=== PATIENT | male | born 1960 | race Caucasian/White ===

== ENCOUNTER 2019-03-27 10:55 | Inpatient (IN) ==
--- NOTE | 2019-03-06 11:12 | PAT Medication Instructions ---
Medication Instructions Date of Service March 06, 2019 Home Medications insulin degludec-liraglutide [Xultophy 100/3.6] 32 SUBCUT QPM metformin 500 mg PO BID DO NOT take the morning of surgery metformin 500 mg PO BID Take evening before surgery insulin degludec-liraglutide [Xultophy 100/3.6] 32 SUBCUT QPM metformin 500 mg PO BID Other Notes If you have any questions please call us at [phone] or [phone] or [phone] or [phone]
--- NOTE | 2019-03-06 11:12 | Anesthesiology Consultation ---
Date of Service March 06, 2019 Assessment & Plan (1) Encounter for pre-operative examination: - Check BSG AM DOS Chart Review Chart Review: Acceptable Risk for Surgery and Patient seen in Pre Admission Testing Teaching & Discussion Pre-Anesthesia Teaching/Discussion Notes: Instructed NPO after midnight before surgery,except medications with 15 cc of water. Medication instructions provided according to the PAT guidelines. History Surgery Operation Date: 03/27/19 09:20 Proposed Procedures p Right Revision Total Knee Replacement - Marck Chua MD Height/Weight Height: 6 ft Weight: 98.1 kg Allergies Allergy/AdvReac Type Severity Reaction Status Date / Time No Known Allergies Allergy Verified 03/05/19 15:34 Medications Home Medications Medication Instructions Recorded Confirmed Last Taken insulin degludec-liraglutide 32 SUBCUT QPM 03/05/19 Unknown [Xultophy 100/3.6] metformin 500 mg PO BID 03/05/19 03/05/19 Unknown Past Medical History Medical History Diabetes IDDM Exercise / Class Metabolic Activity III < 4 Walking/Shop/Light housework Past Surgical History Surgical History History of appendectomy History of surgery BACK History of cholecystectomy History of colonoscopy History of total knee replacement RIGHT Past Anesthesia History No Hx of Anesthesia Complications and No Family Hx of Anesthesia Complications History of PONV No Hx of PONV and No Hx of Motion Sickness Social History Smoking Status: Never smoker Do You Dip or Chew Tobacco: No Hx Alcohol Use: No Hx Substance Use: No substance use type: does not use Review of Systems Patient denies chest pain, shortness of breath, cough, wheezing, palpitations. Physical Exam Vital Signs VITALS BP 105/70 P 69 TEMP 98.0 SP02 95%RA RESP 16 PHYSICAL Full neck and c-spine range of motion. Full TMJ range of motion. TMD 3 finger breaths Mallampati Score 1 Dentition: full dentures on upper Lungs: clear throughout to auscultation Cardiac: regular rate and rhythm, no murmurs noted Spine: normal Carotid arteries: negative bruit Extremities: no edema Testing Laboratory Results 03/06/19 11:13 03/06/19 11:13 03/06/19 03/06/19 03/06/19 11:13 11:13 11:13 PT 10.2 INR 1.0 APTT 27.5 Hemoglobin A1c 8.5 H Blood Type O Positive Antibody Screen NEGATIVE Surgeon made aware of elevated hgba1c/glucose* Electrocardiogram Date: 03/06/19 Findings: + NSR @ (68) Chest X-Ray Date: 02/26/19 Findings: + NAD
[2019-03-06 12:34] LABS: Basophils # (auto) 0.01 K/uL (0-0.2); Basophils % (auto) 0.1 %; Eosinophils # (auto) 0.18 K/uL (0-0.5); Eosinophils % (auto) 2.4 %; Hematocrit (blood only) 41.5 % (42-52); Hemoglobin 14.9 g/dL (14.0-18.0); Immature Granulocytes # (auto) 0.04 K/uL (0.00-0.02); Immature Granulocytes % (auto) 0.5 %; Lymphocytes % (auto) 15.8 %; Mean Corpuscular Hgb Conc 35.9 g/dL (32-36); Mean Corpuscular Volume 83.7 fL (80-100); Mean Platelet Volume 8.4 fL (7.4-10.4); Monocytes % (auto) 6.6 %; Neutrophils # (auto) 5.67 K/uL (1.4-6.5); Neutrophils % (auto) 74.6 %; Platelet Count 282 K/uL (130-400); RDW Coefficient of Variation 12.2 % (11.5-14.5); RDW Standard Deviation 36.9 fL (36.4-46.3); Red Blood Count 4.96 M/uL (4.7-6.1)
[2019-03-06 12:42] LABS: Partial Thromboplastin Time 27.5 Seconds (21.0-31.0); Prothrombin Time 10.2 Seconds (9.0-12.0)
[2019-03-06 12:53] LABS: BUN Creatinine Ratio 12.8 (10-20); C Reactive Protein 0.61 mg/dl (0-0.29); Creatinine Clr Calc Pharmacy 103.5 ml/min; Est GFR (African American) 105.1; Est GFR (Non-African American) 90.6; Potassium 4.2 mmol/L (3.5-5.1)
[2019-03-06 13:24] LABS: Estimated Average Glucose 197 mg/dl; Hemoglobin A1C 8.5 % (4.5-5.6)
--- NOTE | 2019-03-22 11:31 | History and Physical Report ---
DATE OF ADMISSION: 03/27/2019 CHIEF COMPLAINT: Right knee pain, discomfort and swelling. HISTORY OF PRESENT ILLNESS: The patient is a 59-year-old gentleman well known to me from previously treating for his left knee. He had both of his knees replaced by Dr. rFy in [facility] in 2008. He is about 10 years out from that surgery. He never got any relief of his pain on his left knee and had recurrent swelling and he underwent a revision of the tibial tray for aseptic loosening done by myself on 12/13/2012. He has done well from that knee ever since. He has had no problems at all. Over the past 6-7 months, he developed the insidious onset of pain and discomfort in his right knee as well as swelling. It has become unstable for him. It has gradually just gotten worse week by week. He cannot walk any significant distance. He has had no fevers and no recent signs of infection. We did do a workup. His white blood cell count was normal. His inflammatory parameters on 02/13/2019 revealed a CRP of less than 0.29 and sed rate of 3. We did aspirate his knee and it revealed 4000 white cells with 22% polys and no growth. He continues to have persistent pain, now presents for a revision. We also did a bone scan, which is suggestive of loosening of his femoral component. On plain films, it also suggested loosening of the tibial tray. He has elected to proceed with revision surgery. We have him come back and did his workup and his sed rate and C-reactive protein were just slightly elevated with a sed rate of 16 and C-reactive protein of 0.61. I re-aspirated his knee which revealed 4000 white cells and 44% polys, once again no growth. We sent it off for Synovasure testing which was negative. He now like to proceed with revision of his knee. I think we are going to have to revise both components and I think this is aseptic loosening. He has had 3 cultures of this knee which have been no growth. Synovasure test negative. PAST MEDICAL HISTORY: Significant for: 1. Diabetes x10 years. 2. Sciatica/low back pain. PAST SURGICAL HISTORY: Previous surgeries include: 1. Bilateral knee replacements done in 2008. 2. Back surgery. 3. Left knee revision in 12/13/2012. ALLERGIES: None. CURRENT MEDICINES: Include metformin. SOCIAL HISTORY: A 59-year-old male. He is . Does not drink. One child. FAMILY HISTORY: Noncontributory. REVIEW OF SYSTEMS: Significant for diabetes which has been somewhat poorly controlled at times. Denies any chest pain or shortness of breath. No history of DVT or PE. PHYSICAL EXAMINATION GENERAL: Shows a pleasant, middle-aged male who looks to be in pretty good health. HEENT: Benign. NECK: Supple. No lymphadenopathy. LUNGS: Clear to auscultation. HEART: Regular rate and rhythm. ABDOMEN: Soft, nontender, nondistended. EXTREMITIES: Grossly neurovascularly intact except as follows. Examination of the right knee reveals the patient walks with markedly antalgic gait. He does limp on his right side. He has got a large knee effusion. No warmth or redness. Range of motion 0 to about 115. There seems to be some varus, valgus laxity. He has no pain with hip motion. X-RAYS: X-ray of the right knee reviewed. Shows evidence of posterior stabilized total knee arthroplasty. A little lucency underneath the tibial tray as well as some lucency around the femoral component. Bone scan from [facility] is reviewed. It shows increased uptake in the right knee, particularly around the femoral component, but little bit around the tibia as well. Knee aspirate results are as described above. 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 He has got an extensive infectious workup which was negative. PLAN: We are going to take him to the Operating Room and revise his knee. We will plan on doing a total knee revision of the femoral and tibial components. If we get in there and there is an infection, we will put an antibiotic spacer in. The risks and benefits of this procedure were explained to the patient including but not limited to DVT, PE, , infection, neurological injury, vascular injury, bleeding problem, pain, limited range of motion, stiffness, failure to relieve symptoms, incomplete relief of symptoms, infection, persistent pain, etc. The patient understands and desires to proceed. Informed consent was obtained. We did talk about trying to get his blood glucose under better control and he is working with his medical doctor to do that.
[~2019-03-27 10:55] MED LIST: ACETAMINOPHEN 500 MG TAB PO SCH; BUPIVACAINE 0.5 % 5 MG/1 ML PF 10ML VIAL ONE; BUPIVACAINE LIPOSOME/PF 266 MG, BUPIVACAINE/EPINEPHRINE 50 ML, SODIUM CHLORIDE 0.9% 30 ... INFIL SCH; CEFAZOLIN 2000MG 2,000 MG/15 ML SYR IV SCH; FAMOTIDINE 20 MG TAB PO SCH; GABAPENTIN 300 MG x 2 PO SCH; LR 500ML BOLUS, THEN 15ML/HR IV SCH; LR 60ML/HR IV SCH; METOCLOPRAMIDE HCL 10 MG TABLET PO SCH; ROPIVACAINE 0.5% 5 MG/ML 30 ML VIAL ONE; SCOPOLAMINE 1.5 MG TDSY TD SCH; TRANEXAMIC ACID 1,000 MG **IV Intra-op IV SCH
[2019-03-27] MEDS ORDERED: fentaNYL citrate 100 MCG/2 ML VIAL ONE ×5 (12:32→16:01)
[2019-03-27] MEDS ORDERED: MIDAZOLAM HCL 1 MG/ML 2ML VIAL ONE ×2 (12:32→15:10)
[2019-03-27] MEDS ORDERED: PROPOFOL IV EMULSION 10 MG/ML 20 ML VIAL IV ONE ×5 (12:40→16:19)
[2019-03-27] MEDS ORDERED: LIDOCAINE HCL 2% 2 ML VIAL/AMP(20MG/ML) INFIL ONE (12:40)
[2019-03-27] MEDS ORDERED: BUPIVACAINE 0.25% 30 ML VIAL ONE (12:42)
[2019-03-27] MEDS ORDERED: EPINEPHrine INJ 1 MG/ML AMP ONE (12:42)
[2019-03-27] MEDS ORDERED: BUPIVACAINE LIPOSOME 1.3% 266 MG/20 ML VIAL ONE (12:43)
[2019-03-27] MEDS ORDERED: SODIUM CHL BACTERIOSTATIC 0.9% INJ 30 ML VIAL ONE (12:43)
[2019-03-27] MEDS ORDERED: BACITRACIN INJ 50,000 UNIT VIAL ONE ×2 (12:43→15:56)
[2019-03-27] MEDS ORDERED: SODIUM CHLORIDE 0.9% PF 50 ML VIAL ONE (12:43)
--- NOTE | 2019-03-27 13:19 | History & Physical Bridge Note ---
Date of Service March 27, 2019 History & Physical Bridge Note I have examined the patient, reviewed the History & Physical and in the interval since the performance of the History & Physical I have noted the following changes of clinical significance: no changes noted
[2019-03-27] MEDS ORDERED: ONDANSETRON INJ 2 MG/ML 2 ML VIAL ONE (13:58)
[2019-03-27] MEDS ORDERED: ePHEDrine sulfate 50 MG/ML SYR ONE (14:17)
[2019-03-27] MEDS ORDERED: VANCOMYCIN HCL 1000MG/20ML VIAL ONE (15:07)
[2019-03-27] MEDS ORDERED: PHENYLEPHRINE 100MCG/ML 5ML SYR ONE (16:08)
--- NOTE | 2019-03-27 16:38 | Post Operative Brief Note ---
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
--- NOTE | 2019-03-27 17:13 | Anesthesiology Progress Note ---
Date of Service March 27, 2019 Anesthesia Post Procedure Vital Signs Vital Signs: Temp Pulse Pulse Resp BP Pulse Ox 03/27/19 17:00 68 16 119/72 94 03/27/19 16:50 71 14 129/83 96 03/27/19 16:44 36.2 C L 71 14 125/77 96 03/27/19 11:23 36.5 C 77 16 121/98 97 Pain Intensity Right Knee: Pain Intensity: 3 Transfer of Care Handoff Completed per policy Notes Mental Status: alert / awake / arousable Patient Amnestic to Procedure: Yes Nausea / Vomiting: adequately controlled Pain: adequately controlled Airway Patency, RR, SpO2: stable & adequate BP & HR: stable & adequate Hydration State: stable & adequate Neuraxial Anesthesia: was administered and sensory block is resolving Anesthetic Complications: no major complications apparent and Pt Satisfied with anesthetic care
--- NOTE | 2019-03-27 17:17 | XRay Report ---
XR knee RT 2V routine CLINICAL HISTORY: Surgical Post Op COMPARISON: Right knee radiographs 03/06/2019. FINDINGS: Alignment of the revision right knee arthroplasty is anatomic. There are skin lilliam. The re is no periprosthetic fracture or unexpected radiopaque foreign body. IMPRESSION: Expected findings following revision total right knee arthroplasty. Electronically signed by: Buddy Molina M.D. 03/27/2019 5:14 PM
[2019-03-27] MEDS ORDERED: GLUCOSE 10 TABS/TUBE PO PRN (17:23)
[2019-03-27] MEDS ORDERED: BISACODYL 10 MG SUPP PR PRN (17:23)
[2019-03-27] MEDS ORDERED: DEXTROSE 50% 50 ML SYRINGE IV PRN (17:23)
[2019-03-27] MEDS ORDERED: TAMSULOSIN HCL 0.4 MG CAP PO PRN (17:23)
[2019-03-27] MEDS ORDERED: GLUCAGON FOR INJ 1 MG VIAL SQ PRN (17:23)
[2019-03-27] MEDS ORDERED: HYDROmorphone INJ 0.5 MG/0.5 ML SYR IV PRN (17:23)
[2019-03-27] MEDS ORDERED: ALUMINUM/MAGNESIUM SUSP 30 ML UDC PO PRN (17:23)
[2019-03-27] MEDS ORDERED: MAGNESIUM HYDROXIDE SUSP 30 ML UDC PO PRN (17:23)
[2019-03-27] MEDS ORDERED: GLUCOSE 40% GEL 15 GM TUBE PO PRN (17:23)
[2019-03-27] MEDS ORDERED: PHARMACY GLYCEMIC MGMT CONSULT STA (17:23)
[2019-03-27] MEDS ORDERED: METOCLOPRAMIDE HCL INJ 5 MG/ML 2 ML VIAL IV PRN (17:23)
[2019-03-27] MEDS ORDERED: NALOXONE HCL 0.4 MG/1 ML VIAL/CARP IV PRN (17:23)
[2019-03-27] MEDS ORDERED: ONDANSETRON INJ 2 MG/ML 2 ML VIAL IV PRN (17:23)
[2019-03-27] MEDS ORDERED: CARBOHYDRATES FOR HYPOGLYCEMIA PO PRN (17:23)
[2019-03-27] MEDS ORDERED: PHARMACY GLYCEMIC MGMT CONSULT PRN (17:59)
[2019-03-27] MEDS: INSULIN ASPART 100 UNITS/ML 3 ML PEN SC SCH ×2 (18:40→21:22)
[2019-03-27] MEDS: FERROUS GLUCONATE 324 MG TAB PO SCH (18:44)
[2019-03-27] MEDS: CHECK SCOPOLAMINE PATCH PLACEMENT SCH ×2 (18:44→23:59)
[2019-03-27] MEDS: ASCORBIC ACID 500 MG TAB PO SCH (18:44)
--- NOTE | 2019-03-27 19:57 | Progress Note ---
DATE: 03/27/2019 SUBJECTIVE: A 59-year-old gentleman postop from a right revision total knee replacement for aseptic loosening and extensive osteolysis. He is doing pretty well. Having some pain but different. No chest pain, no shortness of breath. Not feeling dizzy or lightheaded. OBJECTIVE: VITAL SIGNS: Temperature 36.8. Vital signs stable. GENERAL: Reveals a pleasant, middle-aged male. He is sitting up in bed, looks pretty comfortable. LUNGS: Clear to auscultation. HEART: Has a regular rate and rhythm. ABDOMEN: Soft, nontender, nondistended. EXTREMITIES: Grossly neurovascularly intact except as follows: Examination of the right leg reveals the leg to be well aligned. Dressing is clean, dry, and intact. He can dorsiflex and plantarflex his toes appropriately. NEUROLOGIC: He is neurologically intact. X-RAYS: X-rays of the left knee from recovery room reviewed. It shows a cemented revision right total knee replacement. Components look to be in good position. No signs of problems. ASSESSMENT: A 59-year-old gentleman postop from a right total knee revision for extensive osteolysis and aseptic loosening, doing pretty well. There is no suspicion for infection. Pain seems to be controlled. PLAN: 1. DVT prophylaxis including thigh-high TEDs, SCDs, and aspirin twice a day. 2. PT/OT. Weight bear as tolerated. Right total knee protocol. 3. Pain control. Doing well with current pain regimen. He was taking some narcotics preop which may make pain control a little bit more difficult. 4. IV antibiotics x24 hours. 5. Disposition: Plan to discharge to home likely with some home health once adequately recovered.
[2019-03-27] MEDS: KETOROLAC 30 MG/ML VIAL IV SCH (20:28)
[2019-03-27] MEDS ORDERED: INSULIN GLARGINE SOLOSTAR 100 UNITS/ML 3 ML PEN SC SCH (21:00)
[2019-03-27] MEDS: CEFAZOLIN 2000MG 2,000 MG/15 ML SYR IV SCH (21:10)
[2019-03-27] MEDS: SENNA 8.6 MG TAB PO SCH (21:18)
[2019-03-27] MEDS: ASPIRIN 81 MG ECTAB PO SCH (21:18)
[2019-03-27] MEDS: TAPENTADOL HCL ER 50 MG TABCR PO SCH (21:18)
[2019-03-27] MEDS: DOCUSATE SODIUM 100 MG CAP PO SCH (21:18)
[2019-03-27] MEDS: SODIUM CHLORIDE 0.9% 1000ML 1,000 ML IV SCH (22:06)
[2019-03-27] MEDS: ACETAMINOPHEN 500 MG TAB PO SCH (22:10)
[2019-03-27] MEDS ORDERED: TRANEXAMIC ACID 1,000 MG in 0.9 % SODIUM CHLORIDE 100 ML IV SCH (22:30)
[2019-03-27] MEDS ORDERED: INSULIN HUMAN REGULAR PER UNIT 4 UNITS in SYRINGE 3.96 ML IV ONE (23:15)
[2019-03-27] MEDS: OXYCODONE HCL IR 5 MG TAB (IMMEDIATE RELEASE) PO PRN (23:55)
--- NOTE | 2019-03-28 01:54 | Operative Report ---
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 PROCEDURE PERFORMED: Right revision total knee arthroplasty. COMPLICATIONS: None. ESTIMATED BLOOD LOSS: 200 mL. FLUID REPLACEMENT: 1900 mL crystalloid fluid placement. TOURNIQUET TIME: There are two separate tourniquet times, the first tourniquet time was 116 minutes at 300 mmHg. The tourniquet was then let down and then for 15 minutes and then for an additional 19 minutes for cementing at 300 mmHg. SPECIMENS: Right knee synovium sent for frozen section which revealed less than 5 polys per high power field. We also sent fluids for Gram stain and culture. Gram Stain shower rare WBCs and No organisms. OPERATIVE INDICATIONS: The patient is a 59-year-old gentleman who is 10 years out from bilateral knee replacements. He never really got any relief from his left knee replacement, underwent revision of his tibial tray several years ago by myself and he has done well with that ever since. His right knee did pretty well until about a year ago when he started to have pain that got worse over the past 6 months. He had recurrent effusion. He had extensive workup for infection with two knee aspirates which both had no growth. He had Synovasure testing which was negative. The patient had no clinical signs of infection. He did have a bone scan which suggested a femoral loosening. He had plain x-rays suggested tibial loosening. He has been pretty miserable and elected to proceed with surgical intervention. OPERATIVE FINDINGS: Operative findings revealed extensive synovitis with osteolysis primarily of the distal femur around the femoral component. The tibial tray was grossly loose. It had debonded from the cement. The cement mantle was still pretty well fixed. The femoral component was grossly loose. He had a large knee joint effusion and extensive synovitis. The patella had very little wear and it tracked appropriately. OPERATIVE IMPLANTS: Operative implants consisted of: 1. A Biomet Vanguard 360 size 67.5 right posterior stabilized femoral component with a 5-mm offset, a 5 mm posteromedial augment and 17 x 80 mm stem. 2. A Biomet size 71 tibial tray with a 5-mm offset, 14 x 80 mm stem with a small keel. 3. An 18 mm posterior stabilized polyethylene insert. OPERATIVE PROCEDURE: The patient was taken to the operating room, identified and placed on the operating room table in supine position. All contact areas were appropriately padded. I.V. antibiotics were provided by anesthesia team. A spinal anesthetic and adductor canal block were provided in the holding area. Scott catheter was placed in sterile fashion. A right thigh tourniquet was then placed. The right lower extremity was prepped and draped in usual sterile fashion. The right leg was elevated and exsanguinated with Esmarch and tourniquet was placed at 300 mmHg. An anterior approach of the right knee was then performed through a longitudinal incision using the previous incision extending about 3 cm proximal and about a centimeter distal. Sharp dissection was carried through subcutaneous tissue down to the level of the extensor mechanism. A medial parapatellar arthrotomy incision was made. The fluid was sent off for stat Gram stain and anaerobic and aerobic culture. Gram stain revealed rare WBCs and no organisms. Subperiosteal dissection was carried out medially. I did an extensive synovectomy of the suprapatellar pouch and medial and lateral gutters in the peripatellar region. This was sent off for frozen section which revealed less than 5 polys per high power field. In light of this information, I elected to proceed with revision of components. The patella was mobilized from the proximal tibia. Great care was taken to protect the patellar tendon insertion throughout the case. The knee was flexed and the patella was subluxated laterally. Femoral interfaces were defined with use of a curette. I then used a combination of osteotome and thin saw blade to disrupt the fibrous interface and then tap the femoral component off. I used the saw to just gently release some of the fibrous tissue around the tibia and then was able to remove the tibial component without difficulty. It was debonded from the cement mantle. I then spent quite a bit of time removing the tibial cement as it was still in place using the osteotome technique. Once it was all complete, attention was then brought toward preparing the bone. Attention was first drawn to the tibia. I entered the intramedullary canal with a reamer and reamed up to a size 14. I left this in place to cut the proximal tibia removing about an additional 2 mm of bone down to make a fresh bone surface. We then measured this and assessed this for 5-mm offset stem. The tibia was sized for a size 71. It was pinned in place. The canal was prepared for the tibial tray. The small cruciate wing was used to punch the tibia. The tibial tray was then assembled and placed and fit nicely. We left this in place while preparing for the femur. The distal femur was entered with a sharp drill. I reamed up to a size 17. We left this in place. Then, the distal femoral cutting block was placed. I made a refresh cut about 5 mm off the distal aspect the cement from the previous femoral component which removed about 2 mm of bone. The femur was then sized to a size 67.5. The AP cutting block guide was placed using a 5-mm offset to optimize the position of the component. The anterior, posterior and champfer cuts were made. The box cutting guide device was placed. I then cut for a posterior augment 5 mm from the posteromedial side. The lateral side had a reasonable bone contact. A notch cut was then made. The femoral component was assembled in place. This fit quite nicely. We then trialed the knee and 18 mm insert fit most appropriately. The patella tracked nicely. Attention was then drawn toward placing the implants. All trial implants were removed. I spent quite a bit of time preparing the bone surfaces to get rid of all fibrous tissue and all osteolysis. There was quite a bit of osteolysis of the femoral surfaces. The tibial surface was pretty much down to good quality bone. Once this was done, we let the tourniquet down for a total tourniquet time 116 minutes. I packed the wound and then assembled the components. While the tourniquet was down, we assembled all of the permanent components. Once these were assembled, I re-exsanguinated the knee. I then irrigated the wound extensively. We dried all the bony surface. A triple batch of Palacos G cement was mixed with 2 grams of vancomycin. A size 67.7 stabilized right femoral component with a 5-mm offset, 17 x 80 stem, 5mm pm augment was placed. A size 71 tibial tray with a 5-mm offset followed and 14 x 80mm stem followed by a 18mm posterior stabilized polyethylene insert was placed and the knee was brought out to full extension until the cement hardened. Once the cement hardened, a final cement check was performed. I injected with a combinatin of 20cc Exparel, 30 mL of normal saline, 50 mL of 0.25% Marcaine with epinephrine. The tourniquet was then let down for a second tourniquet time of 19 minutes. Hemostasis was assured with use of electrocautery. The wound was irrigated extensively. The extensor mechanism was then closed with a combination of #1 PDS and #1 Vicryl suture in a [id number] fashion. The subcutaneous tissues were closed with 2.0 dexon and the sking was closed with lilliam. Leg was then cleaned and dried. Sterile dressing with Xeroform, 4 x 4, sterile cast padding and Zen bandage were applied. The patient was then transferred to the recovery room in a stable condition. All needle and sponge counts were correct at the end of the operation. I attest to the content of the Intraoperative Record and any orders documented therein. Any exceptions are noted below. HANSEL
[2019-03-28] MEDS ORDERED: INSULIN ASPART 100 UNITS/ML 3 ML PEN SC SCH (02:00)
[2019-03-28] MEDS: KETOROLAC 30 MG/ML VIAL IV SCH ×4 (02:04→20:50)
[2019-03-28] MEDS: SODIUM CHLORIDE 0.9% 1000ML 1,000 ML IV SCH (02:52)
[2019-03-28] MEDS: CEFAZOLIN 2000MG 2,000 MG/15 ML SYR IV SCH (05:27)
[2019-03-28] MEDS: ACETAMINOPHEN 500 MG TAB PO SCH ×3 (05:27→21:04)
[2019-03-28 06:15] LABS: Hematocrit (blood only) 34.6 % (42-52); Mean Corpuscular Hgb Conc 34.7 g/dL (32-36); Mean Corpuscular Volume 83.8 fL (80-100); Mean Platelet Volume 8.8 fL (7.4-10.4); Platelet Count 160 K/uL (130-400); RDW Coefficient of Variation 12.6 % (11.5-14.5); RDW Standard Deviation 38.3 fL (36.4-46.3); Red Blood Count 4.13 M/uL (4.7-6.1); White Blood Count 9.39 K/uL (4.8-10.8)
[2019-03-28 06:58] LABS: BUN Creatinine Ratio 13.3 (10-20); Calcium 7.9 mg/dl (8.5-10.1); Creatinine Clr Calc Pharmacy 101.5 ml/min; Est GFR (African American) 103.7; Est GFR (Non-African American) 89.5; Potassium 3.6 mmol/L (3.5-5.1)
--- NOTE | 2019-03-28 08:07 | Progress Note ---
DATE: 03/28/2019 SUBJECTIVE: A 59-year-old gentleman postop day 1 from a right revision knee replacement. He is doing pretty well. Had a pretty good night. Pain is controlled. No chest pain or shortness of breath. Not feeling dizzy or lightheaded. OBJECTIVE: VITAL SIGNS: Temperature 36.6. Vital signs stable. GENERAL: Physical examination shows a pleasant, middle-aged male. He is sitting up in bed, looks pretty comfortable. EXTREMITIES: Examination of the right leg reveals the leg to be well aligned. Dressing is clean, dry, and intact. He can dorsiflex and plantarflex his foot appropriately. He is neurologically intact. LABORATORY DATA: Hemoglobin 12.0. Hematocrit 34.6. Electrolytes are stable. Culture results are pending. ASSESSMENT: A 59-year-old gentleman postop day 1 from a revision total knee replacement for aseptic loosening. He is doing well. Pain is controlled. He is neurologically intact. PLAN: 1. DVT prophylaxis including thigh-high TEDs, SCDs, and aspirin twice a day. 2. PT/OT. Weight bear as tolerated. Right total knee protocol. 3. Pain control, doing pretty well with current pain regimen. 4. Disposition. He is planning to be discharged to home with some home health once adequately recovered.
[2019-03-28] MEDS: FERROUS GLUCONATE 324 MG TAB PO SCH ×2 (08:41→17:27)
[2019-03-28] MEDS: ASPIRIN 81 MG ECTAB PO SCH ×2 (08:41→20:58)
[2019-03-28] MEDS: DOCUSATE SODIUM 100 MG CAP PO SCH ×2 (08:42→20:58)
[2019-03-28] MEDS: MULTIVITAMIN TAB PO SCH (08:42)
[2019-03-28] MEDS: ASCORBIC ACID 500 MG TAB PO SCH ×2 (08:42→17:28)
--- NOTE | 2019-03-28 08:42 | Pharmacy Report ---
Glycemic Control Consultation - Date of Service March 28, 2019 - Scope Scope: Glycemic Pharmacist consulted by Dr Marck Chua on 03/27/19 for glycemic control and to write orders per [facility] inpatient glycemic control protocol - Objective Weight: 96.298 kg Accuchecks BSG (last 24hrs): 03/27/19 03/27/19 03/27/19 11:19 16:49 21:01 Glucose POC Glucose 142 H 150 H 316 H* 03/27/19 03/28/19 03/28/19 23:01 00:34 02:04 Glucose POC Glucose 372 H* 276 H 259 H 03/28/19 03/28/19 05:55 08:18 Glucose 170 H POC Glucose 201 H Laboratory Data (last 24hrs): 03/28/19 05:55 Potassium 3.6 Carbon Dioxide 27 Anion Gap 4.0 Creatinine 0.92 Est Cr Clr Drug Dosing 101.5 HbA1c: Hemoglobin A1c 8.5 % (4.5-5.6) H 03/06/19 11:13 - Recent Pertinent Medications Outpatient Anti-diabetic Regimen: * Xultophy (insulin degludec - liraglutide = 32 units degludec/ 1.16mg liraglutide) SQ HS * Metformin 500mg BID * A1c = 8.5 % 03/06/19 The patient is currently receiving: * Basal insulin: Lantus 32 units every 24 hours * Correctional Insulin: Novolog Correction per scale ACHS Goal Range: Low 110 mg/dL - High 140 mg/dL Correction Factor: 25 mg/dL/unit * Prandial insulin: Per carb ratio of 1 unit per 8 grams CHO consumed * Oral Agents: on hold Risk Factors for Insulin Resistance: * Recent Surgery: POD 1 right revision of total knee replacement * Diet: Type 2 DM - Assessment & Plan Assessment & Plan: ASSESSMENT: * 59 year old male, POD 1 right revision of TKA. * Type 2 diabetic, uncontrolled as outpatient, started on basal bolus therapy last night per pharmacy consult, with blood sugars still above goal at this time. * Will tighten CF and CR this morning. * Note, patient was eating pretzels last evening w/o RN's knowledge and therefore was not able to cover carb content, therefore contributing to hyperglycemia. Pt received 4 units IV Regular insulin at 2330 last night. * Oral agents are not recommended for inpatient use d/t drug interactions, changing PO intake, and difficulty titrating for acute hyper/hypoglycemia. ADA recommends re-initiating outpatient oral agents 1-2 days prior to discharge if/when appropriate if they were held on admission. * ADA & AACE recommend a goal blood sugar range 140-180 mg/dl for the majority of critically ill & non-critically ill patients. However, more stringent targets may be selected in individual cases. Will utilize more stringent goal of 110-140mg/dl based on patient age & comorbidities. Additionally, tighter glycemic control is warranted to facilitate wound/infection healing. PLAN FOR INPATIENT GLYCEMIC CONTROL: * Holding outpatient oral diabetes medications * Basal insulin * Lantus 32 units SQ HS * Bolus insulin * NovoLog per scale ACHS or Q6hrs while NPO * Goal Range: Low 110 mg/dL - High 140 mg/dL * TIGHTEN: Correction Factor: 20 mg/dL/unit * TIGHTEN: Nutritional / Prandial insulin per carb ratio of 1 unit per 7 grams CHO consumed Discharge recommendations: * A1c 8.5% * Recommend increasing Xultophy to 40 units daily and Metformin to 1g PO BID for better outpatient glycemic control * Please note that the plan above was derived based on current level of insulin resistance and hospital stress. These recommendations are appropriate for inpatient admission only. Plan of care upon discharge will need to be reassessed to avoid potential outpatient hypo/hyperglycemia. Thank you.
[2019-03-28] MEDS: INSULIN ASPART 100 UNITS/ML 3 ML PEN SC SCH ×4 (08:44→21:05)
[2019-03-28] MEDS: TAPENTADOL HCL ER 50 MG TABCR PO SCH ×2 (08:47→20:58)
[2019-03-28] MEDS: cephALEXin 500 MG CAP PO SCH ×4 (08:47→20:58)
--- NOTE | 2019-03-28 10:42 | Anesthesiology Progress Note ---
Date of Service March 28, 2019 Anesthesia Post Procedure Vital Signs Vital Signs: Temp Pulse Pulse Pulse Resp BP BP 03/28/19 07:34 36.6 C 69 18 129/81 03/28/19 03:12 36.6 C 71 16 125/72 03/27/19 22:47 36.7 C 60 16 131/75 03/27/19 19:20 36.7 C 67 16 130/81 03/27/19 18:20 36.8 C 68 18 147/95 H 03/27/19 17:51 37.1 C 73 16 121/78 03/27/19 17:20 36.5 C 72 16 128/80 03/27/19 17:10 36.5 C 72 16 115/71 03/27/19 17:00 68 16 119/72 03/27/19 16:50 71 14 129/83 03/27/19 16:44 36.2 C L 71 14 125/77 03/27/19 11:23 36.5 C 77 16 121/98 Pulse Ox 03/28/19 07:34 96 03/28/19 03:12 95 03/27/19 22:47 97 03/27/19 19:20 93 03/27/19 18:20 97 03/27/19 17:51 97 03/27/19 17:20 95 03/27/19 17:10 96 03/27/19 17:00 94 03/27/19 16:50 96 03/27/19 16:44 96 03/27/19 11:23 97 Pain Intensity Right Knee: Pain Intensity: 4 Notes Mental Status: alert / awake / arousable and participated in evaluation Patient Amnestic to Procedure: Yes Nausea / Vomiting: adequately controlled Pain: adequately controlled Airway Patency, RR, SpO2: stable & adequate BP & HR: stable & adequate Hydration State: stable & adequate Anesthetic Complications: no major complications apparent and Pt Satisfied with anesthetic care
[2019-03-28] MEDS: OXYCODONE HCL IR 5 MG TAB (IMMEDIATE RELEASE) PO PRN ×2 (14:34→23:54)
[2019-03-28] MEDS: SENNA 8.6 MG TAB PO SCH (20:58)
[2019-03-28] MEDS ORDERED: INSULIN GLARGINE SOLOSTAR 100 UNITS/ML 3 ML PEN SC SCH (21:00)
[2019-03-29] MEDS: KETOROLAC 30 MG/ML VIAL IV SCH ×2 (02:17→08:06)
[2019-03-29] MEDS: ACETAMINOPHEN 500 MG TAB PO SCH (05:50)
[2019-03-29] MEDS: FERROUS GLUCONATE 324 MG TAB PO SCH (07:58)
[2019-03-29] MEDS: ASCORBIC ACID 500 MG TAB PO SCH (07:59)
[2019-03-29] MEDS: MULTIVITAMIN TAB PO SCH (07:59)
[2019-03-29] MEDS: DOCUSATE SODIUM 100 MG CAP PO SCH (07:59)
[2019-03-29] MEDS: cephALEXin 500 MG CAP PO SCH (08:00)
[2019-03-29] MEDS: ASPIRIN 81 MG ECTAB PO SCH (08:00)
[2019-03-29] MEDS: TAPENTADOL HCL ER 50 MG TABCR PO SCH (08:05)
[2019-03-29] MEDS: INSULIN ASPART 100 UNITS/ML 3 ML PEN SC SCH (08:07)
--- NOTE | 2019-03-29 08:45 | Progress Note ---
DATE: 03/29/2019 SUBJECTIVE: A 59-year-old gentleman postop day 2 from a right revision knee replacement for aseptic loosening. He is doing pretty well. Pain is controlled. Therapy is going well. No chest pain or shortness of breath. OBJECTIVE: VITAL SIGNS: Temperature 36.6. Vital signs stable. GENERAL: Physical examination shows a pleasant, middle-aged male. He is sitting up in his bedside chair eating breakfast. EXTREMITIES: Examination of the right leg reveals the incision to be clean, dry and intact. No significant drainage. Mild swelling. He can do a straight leg raise. He is neurologically intact. CULTURES: Cultures are no growth to date. ASSESSMENT: A 59-year-old gentleman postop day 2 from a right knee revision for aseptic loosening. He is doing pretty well. His pain is controlled. PLAN: 1. DVT prophylaxis including thigh-high TEDs, SCDs, and aspirin twice a day. 2. PT/OT. Weight bear as tolerated. Right total knee protocol. 3. Pain control, doing pretty well with current pain regimen. 4. Antibiotics. We are going to treat him with 7 days of p.o. antibiotics until cultures are negative. 5. Disposition: Plan to discharge to home with some home health later today.
--- NOTE | 2019-03-29 09:34 | Pharmacy Report ---
Pharmacy Glycemic Short Note 2 - Date of Service March 29, 2019 - Glycemic Short BSG Results (Last 24 hours): 03/28/19 03/28/19 03/28/19 12:26 17:07 20:30 POC Glucose 282 H 201 H 223 H 03/29/19 06:37 POC Glucose 87 OUTPATIENT ANTIDIABETIC REGIMEN: * Xultophy (insulin degludec - liraglutide = 32 units degludec/ 1.16mg liraglutide) SQ HS * Metformin 500mg BID * A1c = 8.5 % 03/06/19 ASSESSMENT: 03/29 * Mr. Sunday rec'd 89 units of insulin yesterday (38 of this being basal) * BSGs remained high the entire day yesterday but are much improved this AM. Fasting = 87 mg/dL. * I increased the Lantus dose last evening to provide improvement in BSGs but will now need to back off to outpatient dosing since BSGs are much improved after just one dose. * Will plan to loosen Novolog parameters slightly with more basal on board * Metformin can be resumed today as po intake adequate and SCr stable 03/28 * 59 year old male, POD 1 right revision of TKA. * Type 2 diabetic, uncontrolled as outpatient, started on basal bolus therapy last night per pharmacy consult, with blood sugars still above goal at this time. * Will tighten CF and CR this morning. * Note, patient was eating pretzels last evening w/o RN's knowledge and therefore was not able to cover carb content, therefore contributing to hyperglycemia. Pt received 4 units IV Regular insulin at 2330 last night. * Oral agents are not recommended for inpatient use d/t drug interactions, changing PO intake, and difficulty titrating for acute hyper/hypoglycemia. ADA recommends re-initiating outpatient oral agents 1-2 days prior to discharge if/when appropriate if they were held on admission. * ADA & AACE recommend a goal blood sugar range 140-180 mg/dl for the majority of critically ill & non-critically ill patients. However, more stringent targets may be selected in individual cases. Will utilize more stringent goal of 110-140mg/dl based on patient age & comorbidities. Additionally, tighter glycemic control is warranted to facilitate wound/infection healing. PLAN FOR INPATIENT GLYCEMIC CONTROL: * Resume metformin 500 mg BID * Basal insulin - decrease back to outpatient basal dose * Lantus 32 units SQ qHS * Bolus insulin - loosen CF/CR * NovoLog per scale ACHS or Q6hrs while NPO * Goal Range: Low 110 mg/dL - High 140 mg/dL * Correction Factor: 20 mg/dL/unit * Nutritional / Prandial insulin per carb ratio of 1 unit per 6 grams CHO consumed PLAN FOR DISCHARGE: * A1c 8.5% * Recommend increasing Xultophy to 40 units daily and Metformin to 1g PO BID for better outpatient glycemic control
[2019-03-29] MEDS: OXYCODONE HCL IR 5 MG TAB (IMMEDIATE RELEASE) PO PRN (10:11)
[2019-03-29] MEDS ORDERED: METFORMIN HCL 500 MG TAB PO SCH (17:00)
[2019-03-29] MEDS ORDERED: INSULIN GLARGINE SOLOSTAR 100 UNITS/ML 3 ML PEN SC SCH (21:00)
--- NOTE | 2019-04-03 00:41 | Discharge Summary ---
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 SURGERY PERFORMED: Right revision total knee replacement. SECONDARY DIAGNOSES: Diabetes, low back pain, sciatica. CONSULTS: None obtained. HISTORY AND PHYSICAL EXAMINATION: Well documented in the patient's chart. HOSPITAL COURSE: The patient was admitted on 03/27/2019, underwent revision arthroplasty of his knee. Tolerated the procedure well. There were no complications. He was transferred to the PACU postoperatively and later to the orthopedic floor for further care. He was given Ancef for antibiotic prophylaxis, ZEINAB stockings, SCDs and aspirin for DVT prophylaxis. Hemoglobin, hematocrit and vital signs were monitored during his hospital stay and remained stable, did not require any blood transfusions. His cultures showed no growth. There were no complications during his hospital stay. By postoperative day #2, he is tolerating a diabetic diet. Pain was controlled with oral pain medicine. He was participating in physical therapy. Postop day #2, he was discharged home, set up with home health services, he was given printed discharge instructions including new prescriptions for Extra Strength Tylenol, aspirin, cefadroxil, Zofran and oxycodone. Continue his home medications, continue physical therapy, weightbearing as tolerated, ZEINAB stockings. Follow up approximately 2 weeks postop or sooner if any problems or concerns.
== END 2019-03-29 10:43 | disposition home health service (06) | DRG 468 ==
LOC: ASU 10:55 → 3E 16:41

== ENCOUNTER 2023-03-20 11:31 | Inpatient (IN) ==
--- NOTE | 2023-03-20 11:47 | Emergency Department Note ---
Impression & Plan Complicated urinary tract infection, Acute dehydration, Nausea & vomiting, Syncope ED Provider Note NAME: AFSHAN SUNDAY AGE: 63 SEX: M : 1960 ARRIVES VIA: Ambulance INFORMANT: Patient, ED PROVIDER(S): Jose Tinsley MD CHIEF COMPLAINT: Nausea vomiting, syncope MEDICAL DECISION MAKING: Patient presents for associated nausea vomiting and syncope. The patient likely syncopized after more frequent vomiting. The patient's blood work shows a white count of 14 with a normal H&H and platelet count. Kidney function is unremarkable with fairly normal electrolytes. The patient urinalysis does show concern for infection he does have suprapubic discomfort so a bladder scan was obtained which only showed 120 cc. Patient was ordered additional pain and nausea medication. Given the patient's history of prostate cancer with complicated UTI and associated leukocytosis do not think it unreasonable for admission. I did speak with the on-call hospital service Dr. Brooks and the patient was admitted to the medicine service. I did convey the findings to the patient as well as the patient's daughter at bedside. Prior /Outside records reviewed: I did review discharge summary from March 2019. 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 I did review in orthopedics visit for AC joint arthritis from Dr. Hartley from July 2022. Differential diagnosis: Vasovagal event, dehydration, infection, hypoglycemia, electrolyte abnormalities, cardiac sources, intracerebral event, pulmonary embolism, seizure, toxicologic, neurologic, as well as other pathologies. Diagnostics, as interpreted by me: ECG: Normal sinus rhythm, rate of 77, normal intervals, normal axis no ST elevations. Cardiac monitoring: An order was placed for continuous cardiac monitoring. The monitor shows a rate of 88 with sinus rhythm. Patient was placed on pulse oximetry Medical decision rules: None Imaging studies: See below HPI: Patient presents due to concern for syncope that occurred prior to arrival. The patient does admit that feeling somewhat unwell with associated nausea and vomiting. The patient states that he felt a little bit better this morning but had worsening vomiting. Vomiting began around 12 AM. The patient has had 7-8 episodes of vomiting no blood. Patient does complain of some mild suprapubic discomfort but has a known history of prostate CA and is scheduled for a surgical procedure for his prostate next month. This is post to be done in [facility]. The patient is not on any chemotherapy. Patient denies any chest pains or shortness of breath. The patient does feel better. The patient did receive IV fluids in route. BSG was in the 190s. The patient is an insulin insulin- dependent type 2 diabetic. Patient denies any dysuria or hematuria. Patient denies any falls or trauma. The patient does not think that he hit his head. The patient states that when he syncopized it was during an episode of vomiting. The patient does feel better after IV fluid administration PAST MEDICAL HISTORY: See Below PAST SURGICAL HISTORY: See Below SOCIAL HISTORY: See Below HOME MEDICATIONS: See Below ALLERGIES: See Below VITALS: See Below PHYSICAL EXAMINATION: GENERAL: NAD, wearing a mask, non-toxic. EYE EXAM: Normal conjunctiva. PERRL, no anisocoria and EOM's grossly intact w/o pain. Head: Normocephalic atraumatic. Oropharynx: Dry mucous membranes NECK: Supple, no nuchal rigidity, no adenopathy, non-tender. No signs of meningismus. FROM of the neck with good chin to chest and neck extension. No stridor. LUNGS: Clear to auscultation. Normal chest wall mechanics. HEART: NSR, no MRG. ABDOMEN: Abdomen soft, non-tender, no masses, no rebound or guarding. BACK: No CVA TTP. SKIN: No rashes and no bruising. UPPER EXTREMITIES: Upper extremities are grossly normal. LOWER EXTREMITIES: Grossly normal, no edema. NEURO EXAM: A&O x3, cranial nerves II-XII grossly intact, normal speech, moves all 4 extremities. Past Med/Surg History Medical History Chronic back pain Diabetes IDDM GERD (gastroesophageal reflux disease) History of COVID-19 tested positivie "sometime in July". had fatigue for 1 day. a minor runny nose. tested due to an exposure at that time. no lingering effects currently. Lyme disease hx Surgical History History of appendectomy History of cholecystectomy History of colonoscopy History of surgery BACK x3 History of total knee replacement Bilateral S/P right rotator cuff repair PT REPORTS 2 WEEKS AGO - HEALING Family History Other No family history of adverse response to anesthesia Social History Smoking Status: Never smoker Second Hand Exposure: No; Do You Dip or Chew Tobacco: No; Hx Alcohol Use: No Hx Substance Use: No Preferred Language: Mohawk Communication Ability: Effective Communication Ability Comment: DIFFICULTY READING AND SPELLING Rides Supervisor Required: No Beliefs That Will Affect Care: None Current Living Situation: Alone Feels Safe at Home: Yes Safety Concerns: Feels Safe At This Time Assistive Devices: Brace/Splint/Immobilizer, Denture - Upper and Denture - Lowe r Allergies Allergies Allergy/AdvReac Type Severity Reaction Status Date / Time No Known Allergies Allergy Verified 03/20/23 14:50 Home Meds Home Medications Medication Instructions Recorded Confirmed esomeprazole magnesium 40 mg 40 mg PO HS 05/09/19 03/20/23 capsule,delayed release (Nexium) insulin glargine 100 unit/mL (3 50 unit subcut HS 03/20/23 03/20/23 mL) subcutaneous pen (Lantus Solostar U-100 Insulin) metformin 500 mg tablet,extended 500 mg PO BID 03/20/23 03/20/23 release 24 hr semaglutide 0.25 mg or 0.5 mg (2 1 mg subcut WK 03/20/23 03/20/23 mg/1.5 mL) subcutaneous pen injector Previous Rx's Medication Instructions Recorded oxycodone-acetaminophen 5 mg-325 1 tab PO Q6H PRN pain #10 tabs 12/09/ mg tablet (Percocet) Results & Data (ED) Vital Signs Vital Signs - 24 hr 03/20/23 11:43 03/20/23 11:43 03/20/23 11:43 Temperature 36.8 C 36.8 C Temperature Source Oral Oral Pulse Rate 90 Pulse Rate from SpO2 Sensor Respiratory Rate 15 15 Blood Pressure 139/97 Blood Pressure Mean 111 Pulse Oximetry 95 95 Oxygen Delivery Method Nasal Cannula Nasal Cannula Oxygen Flow Rate 2 2 Sepsis Recent Fever Within 48 Hours No Sepsis New/Unexplained Change in Mental Status N/A Sepsis Action Taken by Nursing No Action Required 03/20/23 12:02 03/20/23 13:06 03/20/23 11:37 Temperature Temperature Source Pulse Rate 110 H Pulse Rate from SpO2 Sensor Respiratory Rate Blood Pressure 139/97 Blood Pressure Mean 111 Pulse Oximetry 95 Oxygen Delivery Method Nasal Cannula Oxygen Flow Rate 2 Sepsis Recent Fever Within 48 Hours Sepsis New/Unexplained Change in Mental Status Sepsis Action Taken by Nursing 03/20/23 11:38 03/20/23 11:40 03/20/23 11:50 Temperature Temperature Source Pulse Rate 97 H 95 H 102 H Pulse Rate from SpO2 Sensor 98 H 89 99 H Respiratory Rate 20 15 23 Blood Pressure Blood Pressure Mean Pulse Oximetry 97 96 96 Oxygen Delivery Method Oxygen Flow Rate Sepsis Recent Fever Within 48 Hours Sepsis New/Unexplained Change in Mental Status Sepsis Action Taken by Nursing 03/20/23 12:00 03/20/23 12:00 03/20/23 12:10 Temperature Temperature Source Pulse Rate 89 92 H Pulse Rate from SpO2 Sensor 89 94 H Respiratory Rate 19 15 Blood Pressure 134/77 Blood Pressure Mean 95 Pulse Oximetry 96 95 Oxygen Delivery Method Oxygen Flow Rate Sepsis Recent Fever Within 48 Hours Sepsis New/Unexplained Change in Mental Status Sepsis Action Taken by Nursing 03/20/23 12:20 03/20/23 12:30 03/20/23 12:30 Temperature Temperature Source Pulse Rate 90 82 Pulse Rate from SpO2 Sensor 89 83 Respiratory Rate 15 20 Blood Pressure 126/89 Blood Pressure Mean 114 Pulse Oximetry 96 95 Oxygen Delivery Method Oxygen Flow Rate Sepsis Recent Fever Within 48 Hours Sepsis New/Unexplained Change in Mental Status Sepsis Action Taken by Nursing 03/20/23 12:40 03/20/23 12:50 03/20/23 13:00 Temperature Temperature Source Pulse Rate 88 108 H Pulse Rate from SpO2 Sensor 90 111 H Respiratory Rate 19 15 Blood Pressure 132/92 Blood Pressure Mean 105 Pulse Oximetry 97 96 Oxygen Delivery Method Oxygen Flow Rate Sepsis Recent Fever Within 48 Hours Sepsis New/Unexplained Change in Mental Status Sepsis Action Taken by Nursing 03/20/23 13:00 03/20/23 13:10 03/20/23 13:20 Temperature Temperature Source Pulse Rate 113 H 110 H 109 H Pulse Rate from SpO2 Sensor 115 H 109 H 109 H Respiratory Rate 16 14 16 Blood Pressure Blood Pressure Mean Pulse Oximetry 94 94 95 Oxygen Delivery Method Oxygen Flow Rate Sepsis Recent Fever Within 48 Hours Sepsis New/Unexplained Change in Mental Status Sepsis Action Taken by Nursing 03/20/23 13:30 03/20/23 13:30 03/20/23 13:40 Temperature Temperature Source Pulse Rate 109 H 110 H Pulse Rate from SpO2 Sensor 109 H 111 H Respiratory Rate 15 15 Blood Pressure 128/85 Blood Pressure Mean 95 Pulse Oximetry 93 93 Oxygen Delivery Method Oxygen Flow Rate Sepsis Recent Fever Within 48 Hours Sepsis New/Unexplained Change in Mental Status Sepsis Action Taken by Nursing 03/20/23 13:50 03/20/23 14:00 03/20/23 14:00 Temperature Temperature Source Pulse Rate 109 H 115 H Pulse Rate from SpO2 Sensor 108 H 115 H Respiratory Rate 15 15 Blood Pressure 138/84 Blood Pressure Mean 97 Pulse Oximetry 93 96 Oxygen Delivery Method Oxygen Flow Rate Sepsis Recent Fever Within 48 Hours Sepsis New/Unexplained Change in Mental Status Sepsis Action Taken by Nursing 03/20/23 14:10 03/20/23 14:20 03/20/23 14:30 Temperature Temperature Source Pulse Rate 99 H 99 H Pulse Rate from SpO2 Sensor 98 H 87 Respiratory Rate 20 15 Blood Pressure 135/84 Blood Pressure Mean 96 Pulse Oximetry 95 97 Oxygen Delivery Method Oxygen Flow Rate Sepsis Recent Fever Within 48 Hours Sepsis New/Unexplained Change in Mental Status Sepsis Action Taken by Nursing 03/20/23 14:30 03/20/23 14:40 03/20/23 14:50 Temperature Temperature Source Pulse Rate 112 H 113 H 111 H Pulse Rate from SpO2 Sensor 111 H 112 H 111 H Respiratory Rate 15 22 17 Blood Pressure Blood Pressure Mean Pulse Oximetry 95 93 96 Oxygen Delivery Method Oxygen Flow Rate Sepsis Recent Fever Within 48 Hours Sepsis New/Unexplained Change in Mental Status Sepsis Action Taken by Nursing 03/20/23 15:20 03/20/23 15:30 03/20/23 15:30 Temperature Temperature Source Pulse Rate 119 H 98 H Pulse Rate from SpO2 Sensor Respiratory Rate 15 12 Blood Pressure 128/86 Blood Pressure Mean 104 Pulse Oximetry Oxygen Delivery Method Oxygen Flow Rate Sepsis Recent Fever Within 48 Hours Sepsis New/Unexplained Change in Mental Status Sepsis Action Taken by Nursing 03/20/23 15:40 03/20/23 15:50 03/20/23 16:00 Temperature Temperature Source Pulse Rate 101 H 104 H Pulse Rate from SpO2 Sensor Respiratory Rate 19 20 Blood Pressure 133/83 Blood Pressure Mean 95 Pulse Oximetry Oxygen Delivery Method Oxygen Flow Rate Sepsis Recent Fever Within 48 Hours Sepsis New/Unexplained Change in Mental Status Sepsis Action Taken by Nursing 03/20/23 16:00 03/20/23 16:10 03/20/23 16:20 Temperature Temperature Source Pulse Rate 101 H 102 H 121 H Pulse Rate from SpO2 Sensor Respiratory Rate 18 21 24 Blood Pressure Blood Pressure Mean Pulse Oximetry Oxygen Delivery Method Oxygen Flow Rate Sepsis Recent Fever Within 48 Hours Sepsis New/Unexplained Change in Mental Status Sepsis Action Taken by [facility] Medications Current Medication List: was personally reviewed by me Laboratory Data Attestation: I reviewed the patient's lab results. 03/20/23 11:50 03/20/23 11:50 Lab Results 03/20/23 03/20/23 03/20/23 Range/Units 11:47 11:50 11:50 WBC 14.77 H (4.8-10.8) K/ul RBC 5.48 (4.70-6.10) M/uL Hgb 16.5 (14.0-18.0) g/dl Hct 46.1 (42.0-52.0) % MCV 84.1 (80.0-100.0) fL MCH 30.1 (25.0-34.0) pg MCHC 35.8 (32.0-36.0) g/dL RDW Std Deviation 37.0 (36.4-46.3) fL RDW Coeff of Baron 12.2 (11.5-14.5) % Plt Count 200 (130-400) K/uL MPV 9.0 L (9.4-12.4) fL Immature Gran % (Auto) 0.4 % Neut % (Auto) 92.4 % Lymph % (Auto) 1.9 % [place] % (Auto) 4.4 % Eos % (Auto) 0.6 % Baso % (Auto) 0.3 % Neut # (Auto) 13.64 H (1.40-6.50) K/uL Lymph # (Auto) 0.28 L (1.2-3.4) K/uL [place] # (Auto) 0.65 H (0.11-0.59) K/uL Eos # (Auto) 0.09 (0-0.50) K/uL Baso # (Auto) 0.05 (0-0.2) K/uL Immature Gran # (Auto) 0.06 (0.01-0.20) K/uL Sodium 138 (136-145) mmol/L Potassium 4.4 (3.5-5.1) mmol/L Chloride 107 (98-107) mmol/L Carbon Dioxide 24 (21-32) mmol/L Anion Gap 7 (3-11) BUN 13 (6-23) mg/dl Creatinine 0.90 (0.6-1.4) mg/dl Est Cr Clr Drug Dosing Not Reportable Est GFR ( Amer) 103.5 ml/min Est GFR (Non-Af Amer) 89.3 ml/min BUN/Creatinine Ratio 14.4 (10-20) Glucose 208 H (70-99(Fasting)) mg/dl POC Glucose 196 H (70-99) mg/dl Calcium 9.1 (8.6-10.3) mg/dl Magnesium 1.7 (1.7-2.4) mg/dl Total Bilirubin 1.1 H (0.2-1.0) mg/dl AST 19 (13-39) U/L ALT 11 (7-52) U/L Alkaline Phosphatase 90 (34-104) U/L Total Creatine Kinase 74 (30-223) U/L Total Protein 6.8 (6.0-8.3) gm/dl Albumin 4.1 (3.4-5.0) gm/dl Globulin 2.7 (2.5-4.0) gm/dl Albumin/Globulin Ratio 1.5 (0.9-2) Prostate Specific Ag (0-4) ng/ml Procalcitonin (0-0.5) ng/ml TSH (0.300-4.500) uIu/ml Urine Color Urine Appearance (Clear) Urine pH (4.5-7.5) Ur Specific [place] (1.000-1.030) Urine Protein (Negative) Urine Glucose (UA) (Negative) Urine Ketones (Negative) Urine Blood (Negative) Urine Nitrite (Negative) Urine Bilirubin (Negative) Urine Urobilinogen (Negative) Ur Leukocyte Esterase (Negative) Urine WBC (Auto) (0-5) /hpf Urine RBC (Auto) (0-4) /hpf U Hyaline Cast (Auto) (0-5) /lpf U Epithel Cells (Auto) (0-5) /lpf Urine Bacteria (Auto) (Negative) Amorphous Sediment (None Prsent) Urine Mucus (None Prsent) SARS-CoV-2 (PCR) (Negative) Influenza Type A (PCR) (Neg) Influenza Type B (PCR) (Neg) RSV (RT-PCR) (Neg) 03/20/23 03/20/23 03/20/23 Range/Units 11:50 11:50 11:50 WBC (4.8-10.8) K/ul RBC (4.70-6.10) M/uL Hgb (14.0-18.0) g/dl Hct (42.0-52.0) % MCV (80.0-100.0) fL MCH (25.0-34.0) pg MCHC (32.0-36.0) g/dL RDW Std Deviation (36.4-46.3) fL RDW Coeff of Baron (11.5-14.5) % Plt Count (130-400) K/uL MPV (9.4-12.4) fL Immature Gran % (Auto) % Neut % (Auto) % Lymph % (Auto) % [place] % (Auto) % Eos % (Auto) % Baso % (Auto) % Neut # (Auto) (1.40-6.50) K/uL Lymph # (Auto) (1.2-3.4) K/uL [place] # (Auto) (0.11-0.59) K/uL Eos # (Auto) (0-0.50) K/uL Baso # (Auto) (0-0.2) K/uL Immature Gran # (Auto) (0.01-0.20) K/uL Sodium (136-145) mmol/L Potassium (3.5-5.1) mmol/L Chloride (98-107) mmol/L Carbon Dioxide (21-32) mmol/L Anion Gap (3-11) BUN (6-23) mg/dl Creatinine (0.6-1.4) mg/dl Est Cr Clr Drug Dosing Est GFR ( Amer) ml/min Est GFR (Non-Af Amer) ml/min BUN/Creatinine Ratio (10-20) Glucose (70-99(Fasting)) mg/dl POC Glucose (70-99) mg/dl Calcium (8.6-10.3) mg/dl Magnesium (1.7-2.4) mg/dl Total Bilirubin (0.2-1.0) mg/dl AST (13-39) U/L ALT (7-52) U/L Alkaline Phosphatase (34-104) U/L Total Creatine Kinase (30-223) U/L Total Protein (6.0-8.3) gm/dl Albumin (3.4-5.0) gm/dl Globulin (2.5-4.0) gm/dl Albumin/Globulin Ratio (0.9-2) Prostate Specific Ag 5.034 H (0-4) ng/ml Procalcitonin < 0.05 (0-0.5) ng/ml TSH 1.273 (0.300-4.500) uIu/ml Urine Color Urine Appearance (Clear) Urine pH (4.5-7.5) Ur Specific [place] (1.000-1.030) Urine Protein (Negative) Urine Glucose (UA) (Negative) Urine Ketones (Negative) Urine Blood (Negative) Urine Nitrite (Negative) Urine Bilirubin (Negative) Urine Urobilinogen (Negative) Ur Leukocyte Esterase (Negative) Urine WBC (Auto) (0-5) /hpf Urine RBC (Auto) (0-4) /hpf U Hyaline Cast (Auto) (0-5) /lpf U Epithel Cells (Auto) (0-5) /lpf Urine Bacteria (Auto) (Negative) Amorphous Sediment (None Prsent) Urine Mucus (None Prsent) SARS-CoV-2 (PCR) (Negative) Influenza Type A (PCR) (Neg) Influenza Type B (PCR) (Neg) RSV (RT-PCR) (Neg) 03/20/23 03/20/23 Range/Units 12:05 12:54 WBC (4.8-10.8) K/ul RBC (4.70-6.10) M/uL Hgb (14.0-18.0) g/dl Hct (42.0-52.0) % MCV (80.0-100.0) fL MCH (25.0-34.0) pg MCHC (32.0-36.0) g/dL RDW Std Deviation (36.4-46.3) fL RDW Coeff of Baron (11.5-14.5) % Plt Count (130-400) K/uL MPV (9.4-12.4) fL Immature Gran % (Auto) % Neut % (Auto) % Lymph % (Auto) % [place] % (Auto) % Eos % (Auto) % Baso % (Auto) % Neut # (Auto) (1.40-6.50) K/uL Lymph # (Auto) (1.2-3.4) K/uL [place] # (Auto) (0.11-0.59) K/uL Eos # (Auto) (0-0.50) K/uL Baso # (Auto) (0-0.2) K/uL Immature Gran # (Auto) (0.01-0.20) K/uL Sodium (136-145) mmol/L Potassium (3.5-5.1) mmol/L Chloride (98-107) mmol/L Carbon Dioxide (21-32) mmol/L Anion Gap (3-11) BUN (6-23) mg/dl Creatinine (0.6-1.4) mg/dl Est Cr Clr Drug Dosing Est GFR ( Amer) ml/min Est GFR (Non-Af Amer) ml/min BUN/Creatinine Ratio (10-20) Glucose (70-99(Fasting)) mg/dl POC Glucose (70-99) mg/dl Calcium (8.6-10.3) mg/dl Magnesium (1.7-2.4) mg/dl Total Bilirubin (0.2-1.0) mg/dl AST (13-39) U/L ALT (7-52) U/L Alkaline Phosphatase (34-104) U/L Total Creatine Kinase (30-223) U/L Total Protein (6.0-8.3) gm/dl Albumin (3.4-5.0) gm/dl Globulin (2.5-4.0) gm/dl Albumin/Globulin Ratio (0.9-2) Prostate Specific Ag (0-4) ng/ml Procalcitonin (0-0.5) ng/ml TSH (0.300-4.500) uIu/ml Urine Color Dark Yellow Urine Appearance Turbid A (Clear) Urine pH 5.0 (4.5-7.5) Ur Specific [place] 1.030 (1.000-1.030) Urine Protein 2+ H (Negative) Urine Glucose (UA) 1+ H (Negative) Urine Ketones 2+ H (Negative) Urine Blood Negative (Negative) Urine Nitrite Positive A (Negative) Urine Bilirubin 1+ H (Negative) Urine Urobilinogen Negative (Negative) Ur Leukocyte Esterase Negative (Negative) Urine WBC (Auto) 1-5 (0-5) /hpf Urine RBC (Auto) 0-4 (0-4) /hpf U Hyaline Cast (Auto) 1-5 (0-5) /lpf U Epithel Cells (Auto) 5-10 H (0-5) /lpf Urine Bacteria (Auto) 1+ H (Negative) Amorphous Sediment Present A (None Prsent) Urine Mucus Present A (None Prsent) SARS-CoV-2 (PCR) NEGATIVE (Negative) Influenza Type A (PCR) Negative (Neg) Influenza Type B (PCR) Negative (Neg) RSV (RT-PCR) Negative (Neg) Administered Medications Ondansetron HCl (Ondansetron Inj 2 Mg/Ml 2 Ml Vial) 4 mg IV Q4H PRN PRN Reason: Nausea Stop: 04/19/23 17:50 Last Admin: 03/20/23 18:22 Dose: 4 mg Documented By: BECKY Discontinued Medications Hyoscyamine (Hyoscyamine Sulfate 0.125 Mg Tab) 0.125 mg SL NOW STA Stop: 03/20/23 14:59 Last Admin: 03/20/23 15:33 Dose: 0.125 mg Documented By: ALEKSANDR Sodium Chloride (Nss 1000ml) 1,000 mls @ 999 mls/hr IV .Q1H1M CANDE Stop: 03/20/23 13:00 Last Infusion: 03/20/23 13:12 Dose: 0 mls/hr Documented By: Admin: 03/20/23 12:07 Dose: 999 mls/hr Documented By: ALEKSANDR Ceftriaxone Sodium (Rocephin) 2,000 mg in 70 mls @ 140 mls/hr IV NOW STA Stop: 03/20/23 14:06 Last Infusion: 03/20/23 14:23 Dose: 0 mls/hr Documented By: Admin: 03/20/23 13:52 Dose: 140 mls/hr Documented By: ALEKSANDR Sodium Chloride (Nss 1000ml) 1,000 mls @ 999 mls/hr IV .Q1H1M ONE Stop: 03/20/23 15:58 Last Infusion: 03/20/23 16:41 Dose: 0 mls/hr Documented By: Admin: 03/20/23 15:34 Dose: 999 mls/hr Documented By: ALEKSANDR Morphine Sulfate (Morphine Sulfate 10 Mg/Ml Carp/Vial) 6 mg IV NOW STA Stop: 03/20/23 14:50 Last Admin: 03/20/23 15:05 Dose: 6 mg Documented By: ALEKSANDR Ondansetron HCl (Ondansetron Inj 2 Mg/Ml 2 Ml Vial) 4 mg IV NOW STA Stop: 03/20/23 14:50 Last Admin: 03/20/23 15:05 Dose: 4 mg Documented By: ALEKSANDR Discharge Plan Visit Data Chief Complaint: Syncope Stated Complaint: WEAKNESS, SYNCOPE, CONFUSED, VOMITING ED Provider: Jose Tinsley Discharge Problem: Complicated urinary tract infection, Acute dehydration, Nausea & vomiting, Syncope Patient Disposition: Admitted As Inpatient Discharge Instructions Interventions: ED Discharge Assessment Last Done: 03/20/23 17:29 Nausea & vomiting Qualifiers: Vomiting type: unspecified Qualified Code(s): R11.2 - Nausea with vomiting, unspecified Syncope Qualifiers: Syncope type: unspecified Qualified Code(s): R55 - Syncope and collapse
[2023-03-20] MEDS ORDERED: SODIUM CHLORIDE 0.9% 1000ML 1,000 ML IV SCH (12:00)
--- NOTE | 2023-03-20 12:35 | Electrocardiogram Report ---
Test Reason : Blood Pressure : / mmHG Vent. Rate : 077 BPM Atrial Rate : 077 BPM P-R Int : 182 ms QRS Dur : 090 ms QT Int : 358 ms P-R-T Axes : 067 -05 055 degrees QTc Int : 405 ms Normal sinus rhythm with sinus arrhythmia Normal ECG When compared with ECG of 29-OCT-2020 08:23, No significant change was found Confirmed by Christopher Smith ([id number]) on 03/20/2023 12:35:03 PM Referred By: Confirmed By:Christopher Smith
[2023-03-20 12:38] LABS: Hematocrit (blood only) 46.1 % (42.0-52.0); Hemoglobin 16.5 g/dl (14.0-18.0); Mean Corpuscular Hemoglobin 30.1 pg (25.0-34.0); Mean Corpuscular Hgb Conc 35.8 g/dL (32.0-36.0); Mean Corpuscular Volume 84.1 fL (80.0-100.0); Platelet Count 200 K/uL (130-400); RDW Coefficient of Variation 12.2 % (11.5-14.5); Red Blood Count 5.48 M/uL (4.70-6.10); White Blood Count 14.77 K/ul (4.8-10.8)
[2023-03-20 12:54] LABS: Alanine Aminotransferase 11 U/L (7-52); Albumin Globulin Ratio 1.5 (0.9-2); Albumin Level 4.1 gm/dl (3.4-5.0); Alkaline Phosphatase 90 U/L (34-104); Anion Gap 7 (3-11); Aspartate Aminotransferase 19 U/L (13-39); BUN Creatinine Ratio 14.4 (10-20); Bilirubin,Total 1.1 mg/dl (0.2-1.0); Blood Urea Nitrogen 13 mg/dl (6-23); Calcium 9.1 mg/dl (8.6-10.3); Carbon Dioxide 24 mmol/L (21-32); Chloride 107 mmol/L (98-107); Creatine Kinase 74 U/L (30-223); Est GFR (African American) 103.5 ml/min; Est GFR (Non-African American) 89.3 ml/min; Globulin 2.7 gm/dl (2.5-4.0); Glucose 208 mg/dl (70-99(Fasting)); Magnesium 1.7 mg/dl (1.7-2.4); Potassium 4.4 mmol/L (3.5-5.1); Sodium 138 mmol/L (136-145); Total Protein 6.8 gm/dl (6.0-8.3)
[2023-03-20 13:11] LABS: Appearance Urine Turbid (Clear); Blood Urine Negative (Negative); Color Urine Dark Yellow; Glucose Urine UA 1+ (Negative); Ketones Urine 2+ (Negative); Leukocyte Esterase Urine Negative (Negative); Nitrite Urine Positive (Negative); Protein Urine 2+ (Negative); RBC Urine Automated 0-4 /hpf (0-4); Urobilinogen Urine Negative (Negative)
[2023-03-20 13:12] LABS: Basophils # (auto) 0.05 K/uL (0-0.2); Basophils % (auto) 0.3 %; Eosinophils # (auto) 0.09 K/uL (0-0.50); Eosinophils % (auto) 0.6 %; Immature Granulocytes # (auto) 0.06 K/uL (0.01-0.20); Immature Granulocytes % (auto) 0.4 %; Lymphocytes # (auto) 0.28 K/uL (1.2-3.4); Lymphocytes % (auto) 1.9 %; Monocytes # (auto) 0.65 K/uL (0.11-0.59); Monocytes % (auto) 4.4 %; Neutrophils # (auto) 13.64 K/uL (1.40-6.50); Neutrophils % (auto) 92.4 %
[2023-03-20 13:14] LABS: Bilirubin Urine 1+ (Negative)
[2023-03-20 13:35] LABS: Influenza A virus by PCR Negative (Neg); Influenza B virus by PCR Negative (Neg); RSV by PCR Negative (Neg); SARS CoV2 RNA(COVID-19) Ceph NEGATIVE (Negative)
[2023-03-20] MEDS ORDERED: cefTRIAXone SODIUM 2,000 MG/70 ML BAG IV STA (13:37)
[2023-03-20 13:48] LABS: Mucus Urine Present (None Prsent)
[2023-03-20 13:49] LABS: Amorphous Sediment Urine Present (None Prsent); Bacteria Urine Automated 1+ (Negative)
[2023-03-20] MEDS ORDERED: MoRPHine SULFATE 10 MG/ML CARP/VIAL IV STA (14:49)
[2023-03-20] MEDS ORDERED: ONDANSETRON INJ 2 MG/ML 2 ML VIAL IV STA (14:49)
[2023-03-20] MEDS ORDERED: HYOSCYAMINE SULFATE 0.125 MG TAB SL STA (14:58)
[2023-03-20] MEDS ORDERED: SODIUM CHLORIDE 0.9% 1000ML 1,000 ML IV ONE (14:58)
--- NOTE | 2023-03-20 16:31 | History & Physical Report ---
Date of Service March 20, 2023 Assessment & Plan (1) Acute pyelonephritis: Plan: Left CVA tenderness on exam IV ceftriaxone Follow up urine and blood cultures (2) Sepsis: Plan: Lactate 1.1 following successful fluid resuscitation Follow up blood cultures as above - suspect secondary to Left acute pyelonephritis, although alternative source would be his sinuses (3) Diabetes: Plan: HbA1C wtih AM labs Switch Lantus 50 units HS to 25 units BID Add Novolog dosing based on basal dosing: --Goal BSG Range: Low 110 mg/dL, High 140mg/dL --Correction Factor: 15 mg/dL/unit --Carbohydrate ratio = 5 g/unit --BSGs ACHS if eating, q6h if npo Plan VTE Prophylaxis - Lovenox Diet - T2DM Disposition - admit to med/tele Admission and Anticipated Discharge Date Admission Date: March 20, 2023 History of Present Illness Chief Complaint: Fever, nausea, vomiting Primary Care Provider: Tomy Menjivar MD Vince Sunday is a 63 year old male who presents to the ER with fever, chills, nausea, vomiting and syncope. The patient reports symptoms started last night (a lthough on further question has been having urinary symptoms for the last 2 weeks). Last night he started with the sweating after going to bed around 11pm. Nasuea and vomiting started around midnight and continued through to this morning. He has been unable to keep anything down. While trying to blow his nose hard this morning (he has chronic polyps so has to blow very hard) he had a passing out episode lasting only seconds. Does not think he hit his head. Vomiting 7-8 times since this started - now with green bile. No abdominal pain or diarrhea. He reports being due for prostate surgery coming up although is unclear what the surgery is but does note he has prostate cancer. On further questioning he does report dysuria (abnormal sensation rather than specific burning of his urine) for the last 2 weeks. He also notes ongoing sinus pressure. He has significant polyps and has been on multiple recent antibiotic courses and steroids with possible upcoming surgery. No shortness of breath or cough. Sinus pressure is not unusual for him. Allergies Allergy/AdvReac Type Severity Reaction Status Date / Time No Known Allergies Allergy Verified 03/20/23 14:50 Home Medications Medication Instructions Recorded Confirmed Type esomeprazole magnesium 40 mg 40 mg PO HS 05/09/19 03/20/23 History capsule,delayed release (Nexium) oxycodone-acetaminophen 5 mg-325 1 tab PO Q6H PRN pain #10 tabs 12/09/20 03/20/23 Rx mg tablet (Percocet) insulin glargine 100 unit/mL (3 50 unit subcut HS 03/20/23 03/20/23 History mL) subcutaneous pen (Lantus Solostar U-100 Insulin) metformin 500 mg tablet,extended 500 mg PO BID 03/20/23 03/20/23 History release 24 hr semaglutide 0.25 mg or 0.5 mg (2 1 mg subcut WK 03/20/23 03/20/23 History mg/1.5 mL) subcutaneous pen injector Past Med/Surg History Medical History (Updated 03/21/23 @ 06:45 by Aakash Brooks MD) Chronic back pain Diabetes IDDM GERD (gastroesophageal reflux disease) History of COVID-19 tested positivie "sometime in July". had fatigue for 1 day. a minor runny nose. tested due to an exposure at that time. no lingering effects currently. Lyme disease hx Surgical History History of appendectomy History of cholecystectomy History of colonoscopy History of surgery BACK x3 History of total knee replacement Bilateral S/P right rotator cuff repair PT REPORTS 2 WEEKS AGO - HEALING Family History Other No family history of adverse response to anesthesia Social History Smoking Status: Never smoker Second Hand Exposure: No; Do You Dip or Chew Tobacco: No; Hx Alcohol Use: No Hx Substance Use: No Preferred Language: Wolof Communication Ability: Effective Communication Ability Comment: DIFFICULTY READING AND SPELLING New Accounts Banking Representative Required: No Beliefs That Will Affect Care: None Current Living Situation: Alone Feels Safe at Home: Yes Safety Concerns: Feels Safe At This Time Assistive Devices: Brace/Splint/Immobilizer, Denture - Upper and Denture - Lower Review of Systems Review of Systems: All systems reviewed & are unremarkable except as noted in HPI & below Physical Exam 2 Constitutional: WD/WN, vitals as above Eyes: PERRL, conjunctivae normal, anicteric sclerae ENMT: Mouth: + dry oral mucous membranes Neck: trachea midline, no thyromegaly Respiratory: normal respiratory effort, lungs clear to auscultation Cardiovascular: RRR, no murmur, no edema Gastrointestinal (Abdomen): Inspection/Auscultation: abdomen normal to inspection; abdomen not distended Percussion/Palpation: + abdomen tender (suprapubic) and abdomen soft; no guarding and abdomen not rigid Musculoskeletal: no cyanosis or clubbing, extremities motor strength 5/5 Skin: no rashes, warm and dry Neurologic: moves all extremities and awake; not confused Psychiatric: A+Ox3, euthymic affect Genitourinary: + CVA tenderness (left) Lymphatic: no cervical lymphadenopathy Results & Data Results & Data Vital Signs (Past 12 Hours) Vital Signs Temp Pulse Resp BP Pulse Ox O2 Del Method O2 Flow Rate 03/20/23 13:50 109 H 15 93 03/20/23 13:40 110 H 15 93 03/20/23 13:30 109 H 15 93 03/20/23 13:30 128/85 03/20/23 13:20 109 H 16 95 03/20/23 13:10 110 H 14 94 03/20/23 13:00 113 H 16 94 03/20/23 13:00 132/92 03/20/23 12:50 108 H 15 96 03/20/23 12:40 88 19 97 03/20/23 12:30 82 20 95 03/20/23 12:30 126/89 03/20/23 12:20 90 15 96 03/20/23 12:10 92 H 15 95 03/20/23 12:00 89 19 96 03/20/23 12:00 134/77 03/20/23 11:50 102 H 23 96 03/20/23 11:40 95 H 15 96 03/20/23 11:38 97 H 20 97 03/20/23 11:37 139/97 03/20/23 13:06 110 H 03/20/23 12:02 95 Nasal Cannula 2 03/20/23 11:43 36.8 C 15 03/20/23 11:43 95 Nasal Cannula 2 03/20/23 11:43 36.8 C 90 15 139/97 95 Nasal Cannula 2 Laboratory Results Abnormal lab results 03/20/23 03/20/23 03/20/23 Range/Units 11:47 11:50 11:50 WBC 14.77 H (4.8-10.8) K/ul MPV 9.0 L (9.4-12.4) fL Neut # (Auto) 13.64 H (1.40-6.50) K/uL Lymph # (Auto) 0.28 L (1.2-3.4) K/uL [place] # (Auto) 0.65 H (0.11-0.59) K/uL Glucose 208 H (70-99(Fasting)) mg/dl POC Glucose 196 H (70-99) mg/dl Total Bilirubin 1.1 H (0.2-1.0) mg/dl Urine Appearance (Clear) Urine Protein (Negative) Urine Glucose (UA) (Negative) Urine Ketones (Negative) Urine Nitrite (Negative) Urine Bilirubin (Negative) U Epithel Cells (Auto) (0-5) /lpf Urine Bacteria (Auto) (Negative) Amorphous Sediment (None Prsent) Urine Mucus (None Prsent) 03/20/23 Range/Units 12:54 WBC (4.8-10.8) K/ul MPV (9.4-12.4) fL Neut # (Auto) (1.40-6.50) K/uL Lymph # (Auto) (1.2-3.4) K/uL [place] # (Auto) (0.11-0.59) K/uL Glucose (70-99(Fasting)) mg/dl POC Glucose (70-99) mg/dl Total Bilirubin (0.2-1.0) mg/dl Urine Appearance Turbid A (Clear) Urine Protein 2+ H (Negative) Urine Glucose (UA) 1+ H (Negative) Urine Ketones 2+ H (Negative) Urine Nitrite Positive A (Negative) Urine Bilirubin 1+ H (Negative) U Epithel Cells (Auto) 5-10 H (0-5) /lpf Urine Bacteria (Auto) 1+ H (Negative) Amorphous Sediment Present A (None Prsent) Urine Mucus Present A (None Prsent) Medications Administered ER Medications Given: NSS 1L bolus Ceftriaxone 2g IV Morphine 6mg IV Ondansetron 4mg IV Levsin 0.125mg SL NSS 1L bolus ECG Rate (beats per minute): 77 Rhythm: sinus with SA Findings: no acute ischemic change Comparison ECG Date: from (March 20, 2023) Change: no significant change Code Status & VTE Plan Code Status Full VTE Prophylaxis Plan VTE Prophylaxis will be ordered: Yes PG Care Time/CCT Total # of Minutes Spent Total Time Spent with Patient: Total time spent is greater than 50% in coordination of care (as documented) at patient's floor/unit and/or counseling patient: Coding Level of Care Code 17462 INT INP/OBS CARE 2/55MIN Diagnoses Acute pyelonephritis N10 Sepsis A41.9 Diabetes E11.9
[2023-03-20] MEDS ORDERED: ONDANSETRON INJ 2 MG/ML 2 ML VIAL IV PRN (17:51)
[2023-03-20] MEDS ORDERED: GLUCOSE 10 TAB/TUBE PO PRN (18:07)
[2023-03-20] MEDS ORDERED: DEXTROSE 50% 50 ML SYRINGE IV PRN (18:07)
[2023-03-20] MEDS ORDERED: GLUCOSE 40% GEL 15 GM TUBE PO PRN (18:07)
[2023-03-20] MEDS ORDERED: GLUCAGON FOR INJ 1 MG VIAL SQ PRN (18:07)
[2023-03-20] MEDS ORDERED: CARBOHYDRATES FOR HYPOGLYCEMIA PO PRN (18:07)
[2023-03-20] MEDS: PLASMA-LYTE A 1,000 ML IV SCH (18:43)
[2023-03-20] MEDS: CALCIUM CARBONATE 500 MG CHEWABLE TAB PO PRN (19:41)
[2023-03-20] MEDS: PANTOprazole 40 MG TAB PO SCH (20:16)
[2023-03-20] MEDS: LANTUS PER UNIT CHARGE SQ SCH (21:23)
[2023-03-20] MEDS: INSULIN ASPART PER UNIT CHARGE SC SCH (21:23)
[2023-03-21] MEDS: PLASMA-LYTE A 1,000 ML IV SCH ×2 (03:00→10:44)
[2023-03-21] MEDS ORDERED: Patient's HEIGHT &/or WEIGHT Needed STA (06:56)
[2023-03-21 07:21] LABS: Basophils # (auto) 0.03 K/uL (0-0.2); Basophils % (auto) 0.4 %; Eosinophils # (auto) 0.44 K/uL (0-0.50); Eosinophils % (auto) 5.9 %; Hematocrit (blood only) 37.7 % (42.0-52.0); Hemoglobin 13.5 g/dl (14.0-18.0); Immature Granulocytes # (auto) 0.03 K/uL (0.01-0.20); Immature Granulocytes % (auto) 0.4 %; Lymphocytes # (auto) 1.04 K/uL (1.2-3.4); Mean Corpuscular Hemoglobin 29.7 pg (25.0-34.0); Mean Corpuscular Hgb Conc 35.8 g/dL (32.0-36.0); Mean Platelet Volume 8.8 fL (9.4-12.4); Monocytes # (auto) 0.54 K/uL (0.11-0.59); Monocytes % (auto) 7.3 %; Neutrophils # (auto) 5.33 K/uL (1.40-6.50); Platelet Count 165 K/uL (130-400); RDW Coefficient of Variation 12.3 % (11.5-14.5); RDW Standard Deviation 37.7 fL (36.4-46.3); Red Blood Count 4.54 M/uL (4.70-6.10); White Blood Count 7.41 K/ul (4.8-10.8)
[2023-03-21 07:45] LABS: Albumin Globulin Ratio 1.6 (0.9-2); Albumin Level 3.4 gm/dl (3.4-5.0); BUN Creatinine Ratio 9.5 (10-20); Calcium 8.5 mg/dl (8.6-10.3); Creatinine Clr Calc Pharmacy 93.5 ml/min; Est GFR (Non-African American) 83.7 ml/min; Globulin 2.1 gm/dl (2.5-4.0); Potassium 3.5 mmol/L (3.5-5.1); Total Protein 5.5 gm/dl (6.0-8.3)
[2023-03-21 08:04] LABS: Estimated Average Glucose 169 mg/dl; Hemoglobin A1C 7.5 % (4.5-5.6)
[2023-03-21] MEDS: LANTUS PER UNIT CHARGE SQ SCH ×2 (08:23→21:34)
[2023-03-21] MEDS: INSULIN ASPART PER UNIT CHARGE SC SCH ×4 (08:23→21:00)
[2023-03-21] MEDS: ENOXAPARIN INJ 40 MG/0.4 ML SYR SQ SCH (08:25)
--- NOTE | 2023-03-21 12:56 | Hospitalist Progress Note ---
Date of Service March 21, 2023 Assessment & Plan (1) Acute pyelonephritis: Plan: Acute/unstable - moderate risk - Left CVA tenderness on exam on admission - UA grossly abnormal, urine culture pending - Initiated on IV ceftriaxone which has been continued - Blood cultures ordered/pending - Reviewed CBC and chemistry - leukocytosis has normalized to 7.41 - no evidence of associated CHRIS (2) Sepsis: Plan: Acute/stable - resolved - Met sepsis criteria with tachycardia + leukocytosis with urinary source - Blood cultures as above - Lactate WNL at 1.1 - Cap fluids (3) Diabetes: Plan: Chronic/stable - HbA1C this AM 7.5% - Switch Lantus 50 units HS to 25 units BID - Add Novolog dosing based on basal dosing: - Goal BSG Range: Low 110 mg/dL, High 140mg/dL - Correction Factor: 15 mg/dL/unit - Carbohydrate ratio = 5 g/unit - BSGs ACHS if eating, q6h if npo Plan Lovenox on board for DVT ppx. Transfer off of [facility] as not warranted at this time. Follow culture data, anticipate home tomorrow. Plan to be d/w Dr. Toscano. Admission and Anticipated Discharge Date Admission Date: March 20, 2023 Subjective Patient was seen on daily rounds this morning. He reports feeling much better this morning, reports no dysuria, hematuria, urgency or frequency. He denies fever/chills. He denies chest pain, dyspnea, n/v/d. Physical Exam Physical Exam: GENERAL: 63 yo well-developed, well-nourished M. AAOx4. NAD. LUNGS: Clear to auscultation bilaterally w/o W/R/R. CARDIOVASCULAR: Regular rate and rhythm ABDOMEN: Soft, non-tender and non-distended. Bowel sounds normoactive x 4 quad. -CVA tenderness. Results & Data Results & Data Vital Signs (Past 12 Hours) Vital Signs Temp Pulse Pulse Resp BP Pulse Ox O2 Del Method 03/21/23 11:37 36.4 C L 65 18 114/68 94 Room Air 03/21/23 07:57 36.8 C 79 18 107/65 95 Room Air 03/21/23 07:19 76 03/21/23 03:14 37.2 C 79 18 113/67 91 Room Air Laboratory Results 03/21/23 06:32 03/21/23 06:32 PG Care Time/CCT Total # of Minutes Spent Total Time Spent with Patient: Total time spent is greater than 50% in coordination of care (as documented) at patient's floor/unit and/or counseling patient: Coding Level of Care Code 18319 SUB INP/OBS CARE 2/35MIN Diagnoses Acute pyelonephritis N10 Sepsis A41.9 Diabetes E11.9
[2023-03-21] MEDS ORDERED: cefTRIAXone SODIUM 2,000 MG in DEXTROSE 5% 50 ML IV SCH (14:00)
[2023-03-21] MEDS: CALCIUM CARBONATE 500 MG CHEWABLE TAB PO PRN (20:23)
[2023-03-21] MEDS: PANTOprazole 40 MG TAB PO SCH (20:37)
[2023-03-22] MEDS: INSULIN ASPART PER UNIT CHARGE SC SCH (08:39)
[2023-03-22] MEDS: LANTUS PER UNIT CHARGE SQ SCH (08:40)
[2023-03-22] MEDS: ENOXAPARIN INJ 40 MG/0.4 ML SYR SQ SCH (08:40)
[2023-03-22] MEDS ORDERED: CIPROFLOXACIN 500 MG TAB PO STA (11:39)
--- NOTE | 2023-03-22 11:48 | Discharge Summary ---
Date of Service March 22, 2023 Admission HPI Per Admitting Provider Afshan Oliver is a 63 year old male who presents to the ER with fever, chills, nausea, vomiting and syncope. The patient reports symptoms started last night (although on further question has been having urinary symptoms for the last 2 weeks). Last night he started with the sweating after going to bed around 11pm. Nasuea and vomiting started around midnight and continued through to this morning. He has been unable to keep anything down. While trying to blow his nose hard this morning (he has chronic polyps so has to blow very hard) he had a passing out episode lasting only seconds. Does not think he hit his head. Vomiting 7-8 times since this started - now with green bile. No abdominal pain or diarrhea. He reports being due for prostate surgery coming up although is unclear what the surgery is but does note he has prostate cancer. On further questioning he does report dysuria (abnormal sensation rather than specific burning of his urine) for the last 2 weeks. He also notes ongoing sinus pressure. He has significant polyps and has been on multiple recent antibiotic courses and steroids with possible upcoming surgery. No shortness of breath or cough. Sinus pressure is not unusual for him. Principal Diagnosis 1. Abnormal UA, suspect bacterial prostatitis 2. BPH Discharge Exam GENERAL: 63 yo well-developed, well-nourished M. AAOx4. NAD. LUNGS: Clear to auscultation bilaterally w/o W/R/R. CARDIOVASCULAR: Regular rate and rhythm ABDOMEN: Soft, non-tender and non-distended. Bowel sounds normoactive x 4 quad. -CVA tenderness. Discharge Data Allergies Allergy/AdvReac Type Severity Reaction Status Date / Time No Known Allergies Allergy Verified 03/20/23 14:50 Consultations 03/20/23 15:03 ED Decision to Admit Stat Ordered Studies 03/21/23 06:32 03/21/23 06:32 Name: AFSHAN OLIVER Acct: [id number] Status: ADM IN : 1960 [facility] Date: 03/20/23 Age: 63 Sex: M Dis Date: Loc: [address] Rm/Bed: N275-2 Spec: [id number] Collected: 03/20/23 Received: 03/20/23-[address]: Jose Tinsley MD Source: Urine,Clean Catch OV Order: Ordered: Urine Culture Procedure Result Verified Site Urine Culture Preliminary 03/22/23 No growth - Less than 1,000 colonies/mL, Final report to follow. Hospital Course (1) Abnormal urinalysis: - Grossly abnormal UA on admission with associated SIRS criteria concerning for UTI with sepsis - Positive nitrites, 1+ bacteruria, with presence of urine mucus and amorphous sediment - Initiated on empiric IV ceftriaxone 2g of which he received 2 doses while in house - Hydrated with IVF which were capped on 03/21 - His SIRS criteria including leukocytosis and tachycardia resolved - Blood cultures NGTD - Urine culture negative for bacterial growth - Given presentation and sx with known BPH, suspect possible bacterial prostatitis - Transition to oral Cipro 500mg BID x 4 weeks, rx sent to pharmacy on file - Given a dose of Cipro prior to d/c on 03/22 as he demanded nurse remove his IV in anticipation of discharge (2) Diabetes: Chronic/stable - HbA1C this AM 7.5% - Switch Lantus 50 units HS to 25 units BID and ACHS novolog coverage - Can transition back to home regimen of Metformin + Lantus (3) BPH (benign prostatic hyperplasia): Chronic/stable - Reportedly has an upcoming urologic procedure in March for his prostate - Denies prostate ca, suspect it's due to BPH with LUTS - Add Flomax 0.4mg HS, rx sent to pharmacy Plan Patient is medically and hemodynamically stable for discharge home today on course of oral Cipro as outlined above. Recommended f/u with his PCP within 1 week or sooner if needed and to f/u with urology. Plan d/w Dr. Morris who is in agreement with aforementioned. Total Time Total Time Spent Total Time Spent (In Minutes): 35 minutes Discharge Plan Discharge Items Patient Disposition: Home - Self-Care Reason For Visit: ACUTE PYELONEPHRITIS, SEPSIS Discharge Diagnosis: urinary tract infection versus prostate infection Activity: Resume your previous activity Non-emergency contact: Primary Care Provider Call non-emergency contact if: you have any medication questions and your symptoms worsen Follow-up/Referrals: Tomy Menjivar MD [Outside Practitioners] - (PLEASE CALL YOUR PRIMARY CARE PROVIDER TO SCHEDULE A DISCHARGE FOLLOW-UP APPOINTMENT WITHIN 7-10 DAYS) Diet: Carb Consistent or DM2 Addtl Attending Provider Instructions: You were hospitalized due to symptoms concerning for a urinary tract infection. Your urine culture did not reveal any bacterial growth, but I am suspicious that your infection based on your lab studies may reflect a bacterial infection in your prostate. Therefore, you are being transitioned to a course of oral antibiotics that you can finish at home. Your next dose is due on 03/22 before bed. The antibiotic is called Cipro and you need to take it twice a day until it is gone. You are also being sent home with a medicine called Flomax which needs to be taken at night. This medication will help relax the smooth muscle in your urinary tract and help you pee better. The remainder of your medications can be resumed as prescribed prior to your hospitalization. Please follow up with your primary care provider within 1 week or sooner if needed. If you have any questions or concerns after you are discharged, feel free to call the nonemergency contact number listed on your discharge paperwork. In the event of a medical emergency, call 911. Pending Studies at Discharge: No Stand-Alone Forms: My [facility], Smoking Cessation Medications and DC Order Prescriptions: New tamsulosin 0.4 mg capsule 0.4 mg PO HS Qty: 30 0RF ciprofloxacin HCl [Cipro] 500 mg tablet 500 mg PO BID Qty: 50 0RF Continued oxycodone-acetaminophen [Percocet] 5-325 mg tablet 1 tab PO Q6H PRN (Reason: pain) Qty: 10 0RF esomeprazole magnesium [Nexium] 40 mg Capsule,Delayed Release(Dr/Ec) 40 mg PO HS metformin 500 mg tablet extended release 24 hr 500 mg PO BID insulin glargine [Lantus Solostar U-100 Insulin] 100 unit/mL (3 mL) insulin pen 50 unit SUBCUT HS Ozempic 0.25 mg or 0.5 mg(2 mg/1.5 mL) pen injector 1 mg SUBCUT WK Rx Instructions: Sunday Discharge Orders: Discharge Order (Routine); Ordered 03/22/23 Ordered By: Paulina Reinoso/Other Patient Handouts: Managing Type 2 Diabetes Admission Data Admit Date/Time: 03/20/23 16:24 Attending Provider: Chucho Morris Admit Provider: Aakash Brooks Primary Care Provider: Rachid Barron Other Providers: [facility] ; Aakash Brooks Coding Level of Care Code 77979 INP/OBS DISCH >30 MIN Diagnoses Abnormal urinalysis R82.90 Diabetes E11.9 BPH (benign prostatic hyperplasia) N40.0
== END 2023-03-22 12:23 | disposition home or self-care (01) | DRG 872 ==
LOC: ED 11:31 → 2N 16:24 → SUATTDRO 16:24 → 2N 17:29